=== PATIENT | female | born 1960 | race Caucasian/White ===

== ENCOUNTER 2020-03-02 15:20 | Outpatient (CLI) | payer OTHER, BC, SELFPAY ==
--- NOTE | 2020-03-02 15:31 | MM_ITS ---
WS: [id number] BILATERAL SCREENING DIGITAL MAMMOGRAM WITH CAD HISTORY: SCREEN COMPARISON: 07/27/2016 and 11/02/2015 Bilateral CC and MLO views submitted. Computer aided detection analyzed. Breast composition: There are scattered areas of fibroglandular density. No suspicious masses, microc alcifications or architectural distortion. MM/[id number] IMPRESSION: BI-RADS: 1-Negative FOLLOW UP: 1 Year Follow-up
== END 2020-03-02 15:21 | disposition home or self-care (01) ==
PROVIDERS: PCP Internal Medicine; Visit Provider Nurse Practitioner Family
DX: Z12.31 Encounter for screening mammogram for malignant neoplasm of breast (principal)
CPT/HCPCS: 77067

== ENCOUNTER 2020-05-05 12:46 | Emergency (ER) | payer OTHER, BC, SELFPAY ==
[2020-05-05] VITALS (7 sets, daily range): BP systolic 147–192; BP diastolic 80–108; PULSE 105–124; RESP 20–22; TEMP 37.6–37.7; O2SAT 88–98; BMI 38.4
--- NOTE | 2020-05-05 13:08 | XRR_ITS ---
PROCEDURE INFORMATION: Exam: XR Chest, 1 View Exam date and time: 05/05/2020 1:09 PM Age: 59 years old Clinical indication: Shortness of breath; Additional info: Dyspnea TECHNIQUE: Imaging protocol: XR of the chest Views: 1 view. COMPARISON: CT Chest/Abdomen/Pelvis [facility] 06/09/2016 1:51 PM FINDINGS: Lungs: There is mild opacification in the mid and inferior left lung. The right lung is clear. Pleural space: Unremarkable. No pleural effusion. No pneumothorax. Heart/Mediastinum: Unremarkable. No cardiomegaly. Bones/joints: Unremarkable. XR/XR chest 1V portable [id number] IMPRESSION: There is mild opacification in the mid and inferior left lung suggestive of mild pneumonia.Clinical correlation is advised.
--- NOTE | 2020-05-05 13:32 | W.ED.SOB ---
HPI - SOB/Dyspnea General: Chief Complaint: Shortness of Breath/Dyspnea Stated Complaint: COVID +/fever/stats dropping Time Seen by Provider: 05/05/20 13:07 History of Present Illness: HPI Narrative: 59-year-old female presents emergency room complaining of fever increasing shortness of breath. She diagnosed with Covid on April 27. She been symptomatic for a couple of days prior. She was treated with Cipro Zithromax and nebulizers on follow-up today at her primary care doctor's office is reported that her sats were in the low 90s on room air. She was referred to the emergency room on arrival here her sats at rest on room air initially were in the 96 to 98% after she had been here for a time her sats settled into 92 to 93% on room air while at rest. She is mildly tachycardic. She has a nonproductive cough and is also been running a bit of a fever she denies any diarrhea at this point. MD elicited complaint: shortness of breath and cough Onset (ago): hour(s) Context: recent illness (COVID-19 infection) Timing: constant Severity: moderate Exacerbating factors: exertion Relieving factors: rest and bronchodilators Associated symptoms: Reports chest congestion, cough and fever(s); Deny abdominal pain, chest pain, diaphoresis, dizziness, extremity pain, hemoptysis, lightheadedness, myalgias, nausea, orthopnea, palpitations, paresthesias, polydipsia, polyuria, rash, sense of impending doom, syncope or vomiting Treatment prior to arrival: bronchodilator Review of Systems Const: Reports: fever(s); Denies: diaphoresis ENMT: Reports: nasal discharge and nasal congestion; Denies: throat pain or ear or mastoid pain Card: Denies: chest pain, palpitations, lightheadedness, syncope or orthopnea Resp: Reports: non-productive cough, wheezing and chest congestion; Denies: hemoptysis GI: Denies: abdominal pain, nausea or vomiting : Denies: flank pain, difficulty voiding, dysuria, urinary frequency or urinary urgency Musc: Denies: extremity pain Skin/Breast: Denies: rash or pruritus Neuro: Denies: dizziness Endo: Denies: polyuria or polydipsia Physical Exam Const: COMMON NORMALS: no acute distress GENERAL APPEARANCE: cooperative and comfortable ORIENTATION/CONSCIOUSNESS: Yes awake, Yes oriented to person, Yes oriented to place and Yes oriented to time HENMT: COMMON NORMALS: normocephalic, atraumatic and hearing grossly normal bilaterally HEAD & SCALP: normocephalic and atraumatic Eye: COMMON NORMALS: Equal, round and reactive pupils present, EOMs intact bilaterally, conjunctivae normal and no scleral icterus CONJUNCTIVA: Yes conjunctivae normal PUPIL: Yes Equal, round and reactive pupils present Neck/C-Spine: COMMON NORMALS: no JVD Resp: AUSCULTATION: rhonchi and wheezes Cardio: COMMON NORMALS: no JVD, regular rate, regular rhythm and No murmurs present (Cardio) RATE: regular rate RHYTHM: regular rhythm GI: COMMON NORMALS: Soft to palpation and No hepatosplenomegaly present AUSCULTATION: Yes normoactive bowel sounds PALPATION: Yes Soft to palpation, No Tenderness to palpation present (GI), No Guarding due to palpation present (GI) and Yes No hepatosplenomegaly present Extremity: COMMON NORMALS: normal to inspection, capillary refill normal, no clubbing, cyanosis or edema, no calf tenderness and no pedal edema Neuro: SENSORIUM/ORIENTATION: Yes oriented to person, Yes oriented to place and Yes oriented to time Skin: COMMON NORMALS: no rashes or lesions noted GENERAL SKIN EXAM: no rashes or lesions noted Course Vital Signs: Vital signs: Vital Signs Temperature 99.9 F H 05/05/20 13:51 Pulse Rate 114 H 05/05/20 13:51 Respiratory Rate 22 H 05/05/20 13:51 Blood Pressure 156/94 05/05/20 13:51 Pulse Oximetry 94 05/05/20 15:09 MDM - SOB/Dyspnea MDM Narrative: Medical decision making narrative: Reviewed findings with the patient. Her white count is slightly elevated you may have to do the steroids she is breathing good her chest x-ray does not show anything that looks significantly acute at this point. We will go ahead and discharge her home I am going to have her go home with oxygen and give her an O2 sat monitor to watch the oxygen levels. At this point I do not think she requires hospitalization if she has worsening or change symptoms she is to return to the emergency room immediately. Otherwise follow-up with her primary care doctor in the next 4 to 5 days. Lab Data: Labs: Lab Results 05/05/20 05/05/20 05/05/20 Range/Units 13:17 13:35 13:40 WBC 20.9 H (4.0-10.0) 10^3/ uL RBC 4.78 (4.1-5.3) 10^6/u L Hgb 14.1 (11.5-15.3) g/dL Hct 44.7 (37.0-47.0) % MCV 93.5 (81-99) fL MCH 29.5 (28.0-34.0) pg MCHC 31.5 (30.0-36.0) g/dL RDW 15.9 H (12.1-15.1) % Plt Count 205 (130-400) 10^3/c mm MPV 11.6 H (7.4-10.4) fL Neut % (Auto) 45.1 % Lymph % (Auto) 50.4 % Calloway % (Auto) 3.6 % Eos % (Auto) 0.0 % Baso % (Auto) 0.2 % Neut # (Auto) 9.42 H (1.8-7.7) 10^3/u L Lymph # (Auto) 10.5 H (0.8-4.8) 10^3/u L Calloway # (Auto) 0.8 (0.2-0.9) 10^3/u L Eos # (Auto) 0.0 (0.0-0.8) 10^3/u L Baso # (Auto) 0.0 (0.0-0.1) 10^3/u L Nucleated RBC % (a uto) 0 % Nucleated RBCs # 0.0 /100WBC Fibrinogen (174-498) mg/dL D-Dimer (0-0.59) ug/mIFE U Specimen Type Arterial Sample Site Brachial, right ABG pH 7.43 (7.35-7.45) ABG pCO2 37.6 (35-45) mmHg ABG pO2 62.1 L (80.0-100.0) mmH g ABG HCO3 25.2 (22-26) mmol/L ABG Base Excess 1.1 (-2.0-2.0) mmol/ L Stefano Test N/a Hematocrit 44.6 (37-47) % O2 Delivery Device Room air FiO2 21.0 % Bacteriologist Dairy ID Amh Sodium (136-145) mmol/L Potassium (3.5-5.1) mmol/L Chloride (98-107) mmol/L Carbon Dioxide (22-29) mmol/L Anion Gap (5-19) BUN (6-20) mg/dL Creatinine (0.5-0.9) mg/dL GFR Calculation (90-130) mL/min Glucose (65-115) mg/dL Calculated Osmolal ity (285-295) mOsm/k g Lactic Acid (0.5-2.2) mmol/L Calcium (8.5-10.5) mg/dL Magnesium (1.7-2.3) mg/dL Ferritin (15-150) ng/mL Total Bilirubin (0.15-1.2) mg/dL AST (0-32) U/L ALT (0-33) U/L Alkaline Phosphata se (35-105) IU/L Lactate Dehydrogen ase (135-214) U/L C-Reactive Protein (0.0-4.9) mg/L Total Protein (6.6-8.7) g/dL Albumin (3.5-5.2) g/dL Globulin (1.3-4.6) g/dL Procalcitonin (0-0.5) ng/mL Influenza Type A A g Negative (Negative) Influenza Type B A g Negative (Negative) 05/05/20 05/05/20 05/05/20 Range/Units 13:40 13:40 13:40 WBC (4.0-10.0) 10^3/ uL RBC (4.1-5.3) 10^6/u L Hgb (11.5-15.3) g/dL Hct (37.0-47.0) % MCV (81-99) fL MCH (28.0-34.0) pg MCHC (30.0-36.0) g/dL RDW (12.1-15.1) % Plt Count (130-400) 10^3/c mm MPV (7.4-10.4) fL Neut % (Auto) % Lymph % (Auto) % Calloway % (Auto) % Eos % (Auto) % Baso % (Auto) % Neut # (Auto) (1.8-7.7) 10^3/u L Lymph # (Auto) (0.8-4.8) 10^3/u L Calloway # (Auto) (0.2-0.9) 10^3/u L Eos # (Auto) (0.0-0.8) 10^3/u L Baso # (Auto) (0.0-0.1) 10^3/u L Nucleated RBC % (a uto) % Nucleated RBCs # /100WBC Fibrinogen 539 H (174-498) mg/dL D-Dimer 0.57 (0-0.59) ug/mIFE U Specimen Type Sample Site ABG pH (7.35-7.45) ABG pCO2 (35-45) mmHg ABG pO2 (80.0-100.0) mmH g ABG HCO3 (22-26) mmol/L ABG Base Excess (-2.0-2.0) mmol/ L Stefano Test Hematocrit (37-47) % O2 Delivery Device FiO2 % Bacteriologist Dairy ID Sodium 138 (136-145) mmol/L Potassium 3.7 (3.5-5.1) mmol/L Chloride 99 (98-107) mmol/L Carbon Dioxide 25 (22-29) mmol/L Anion Gap 17.7 (5-19) BUN 15 (6-20) mg/dL Creatinine 0.6 (0.5-0.9) mg/dL GFR Calculation 102.3 (90-130) mL/min Glucose 98 (65-115) mg/dL Calculated Osmolal ity 287 (285-295) mOsm/k g Lactic Acid 1.3 (0.5-2.2) mmol/L Calcium 9.0 (8.5-10.5) mg/dL Magnesium 2.1 (1.7-2.3) mg/dL Ferritin 190 H (15-150) ng/mL Total Bilirubin 0.4 (0.15-1.2) mg/dL AST 39 H (0-32) U/L ALT 68 H (0-33) U/L Alkaline Phosphata se 90 (35-105) IU/L Lactate Dehydrogen ase 249 H (135-214) U/L C-Reactive Protein 36.0 H (0.0-4.9) mg/L Total Protein 7.1 (6.6-8.7) g/dL Albumin 4.2 (3.5-5.2) g/dL Globulin 2.9 (1.3-4.6) g/dL Procalcitonin 0.07 (0-0.5) ng/mL Influenza Type A A g (Negative) Influenza Type B A g (Negative) Discharge Plan Discharge Patient Disposition: Home Clinical Impression: COVID-19 virus infection Condition: Stable Prescriptions: New dexamethasone 6 mg tablet 6 mg PO DAILY Qty: 7 RF: 0 No Action azithromycin 250 mg tablet 250 mg PO DIRECTED RF: 0 prednisone 20 mg tablet 20 mg PO BID RF: 0 Discharge Orders: Discharge Order (Routine); Ordered 05/05/20 Ordered By: Jimmie Brito Other Ambulatory Orders: DME: Oxygen (Order) Location: None Selected Ordered By: Jimmie Brito DME: Oxygen (Order) Location: None Selected Ordered By: Jimmie Brito Referrals: Angel Chatterjee DO [Primary Care Provider] - Discharge Diet: Usual diet Discharge Activity: Limit activity as instructed Activity Restrictions/Additional Instructions: Monitor your home O2 sat with a finger saturation given to you today. Tylenol and ibuprofen as needed for fever. Dexamethasone daily for 7 days. Follow-up with your primary care doctor in 2 to 3 days. Coding Level of Care Code ED Fly Finisher for Barbi Fwcliff Exam Comprehensive
[2020-05-05 13:47] LABS: ABG PCO2 37.6 mmHg (35-45); ABG PH Result 7.43 (7.35-7.45); Arterial Blood Gas Hematocrit 44.6 % (37-47); Base Excess ABG 1.1 mmol/L (-2.0-2.0); Blood Gas Sample Site Brachial, right; Blood Gas Sample Type Arterial; HCO3 ABG 25.2 mmol/L (22-26); PO2 ABG 62.1 mmHg (80.0-100.0)
[2020-05-05 13:49] LABS: Blood Gas Operator Identificat AMH; Oxygen Device ROOM AIR
[2020-05-05 13:51] LABS: Basophils % 0.2 %; Hematocrit 44.7 % (37.0-47.0); Hemoglobin 14.1 g/dL (11.5-15.3); Lymphocytes # 10.5 10^3/uL (0.8-4.8); Lymphocytes % 50.4 %; Mean Corpuscular HGB Conc 31.5 g/dL (30.0-36.0); Mean Corpuscular Hemoglobin 29.5 pg (28.0-34.0); Mean Corpuscular Volume 93.5 fL (81-99); Mean Platelet Volume 11.6 fL (7.4-10.4); Monocytes # 0.8 10^3/uL (0.2-0.9); Monocytes % 3.6 %; Neutrophils # 9.42 10^3/uL (1.8-7.7); Neutrophils % 45.1 %; Nucleated Red Blood Cells % 0 %; Platelet Count 205 10^3/cmm (130-400); Red Blood Count 4.78 10^6/uL (4.1-5.3); Red Cell Distribution Width 15.9 % (12.1-15.1); White Blood Count 20.9 10^3/uL (4.0-10.0)
[2020-05-05 14:16] LABS: Influenza A by IFA Negative (Negative); Influenza B by IFA Negative (Negative)
[2020-05-05 14:17] LABS: Lactic Sepsis W/Reflex 1.3 mmol/L (0.5-2.2)
[2020-05-05 14:26] LABS: Procalcitonin 0.07 ng/mL (0-0.5)
[2020-05-05 14:32] LABS: D Dimer 0.57 ug/mIFEU (0-0.59)
[2020-05-05 14:38] LABS: Alanine Aminotransferase 68 U/L (0-33); Albumin Level 4.2 g/dL (3.5-5.2); Alkaline Phosphatase 90 IU/L (35-105); Anion Gap 17.7 (5-19); Aspartate Amino Transferase 39 U/L (0-32); Blood Urea Nitrogen 15 mg/dL (6-20); Carbon Dioxide 25 mmol/L (22-29); Chloride 99 mmol/L (98-107); Ferritin 190 ng/mL (15-150); Globulin 2.9 g/dL (1.3-4.6); Glomerular Filtration Rate 102.3 mL/min (90-130); Glucose 98 mg/dL (65-115); Lactate Dehydrogenase 249 U/L (135-214); Magnesium 2.1 mg/dL (1.7-2.3); Osmolality Calculated 287 mOsm/kg (285-295); Potassium 3.7 mmol/L (3.5-5.1); Sodium 138 mmol/L (136-145); Total Bilirubin 0.4 mg/dL (0.15-1.2); Total Protein 7.1 g/dL (6.6-8.7)
[2020-05-05 14:40] LABS: Slide Review Slide Review Perform
[2020-05-05 15:00] LABS: Fibrinogen 539 mg/dL (174-498)
== END 2020-05-05 16:42 | disposition home or self-care (01) ==
PROVIDERS: Emergency Provider Family Medicine; PCP Internal Medicine
DX: U07.1 COVID-19 (principal)
CPT/HCPCS: 12345; 36600; 71045; 80053; 82728; 82803; 83605; 83615; 83735; 84145; 85025; 85378; 85384; 86140; 87070; 87205; 87804; 99283; 99284

== ENCOUNTER → 2021-06-17 08:16 | Outpatient (BNVA) | payer OTHER, BC, SELFPAY | PROVIDERS: PCP Family Medicine; Visit Provider Family Medicine | DX: Z13.6 Encounter for screening for cardiovascular disorders (principal); Z80.41 Family history of malignant neoplasm of ovary; R00.2 Palpitations | CPT/HCPCS: 80053; 80061; 84443; 85025; 86304 ==

== ENCOUNTER 2021-07-26 07:25 | Outpatient (CLI) | payer OTHER, BC, SELFPAY ==
--- NOTE | 2021-07-26 07:30 | MM_ITS ---
WS: [id number] BILATERAL SCREENING DIGITAL MAMMOGRAM WITH CAD HISTORY: screening mammogram COMPARISON: 03/02/2020 and 06/26/2017 Bilateral CC and MLO views submitted. Computer aided detection analyzed. Breast composition: There are scattered areas of fibroglandular density. No suspicious masses, microc alcifications or architectural distortion. Increased density within lymph nodes in each axilla. These were also present on studies. MM/[id number] IMPRESSION: BI-RADS: 2-Benign FOLLOW UP: 1 Year Follow-up
== END 2021-07-26 07:26 | disposition home or self-care (01) ==
LOC: RADSHAW 07:30
PROVIDERS: PCP Family Medicine; Visit Provider Family Medicine
DX: Z12.31 Encounter for screening mammogram for malignant neoplasm of breast (principal)
CPT/HCPCS: 77067

== ENCOUNTER 2022-03-21 14:59 | Outpatient (CLI) | payer OTHER, BC, SELFPAY ==
--- NOTE | 2022-03-21 16:00 | USCV_ITS ---
Clara Ingram Age: 61 Gender: F : 1960 Exam Date: 03/21/2022 15:49 Ordering Phys: Magui Venegas DO Technologist: Mary Castellanos Exam Location: [facility] Indication: lower extremity edema BP: 120 / 82 HR: 80 Rhythm: Sinus Technical Quality: Fair MEASUREMENTS (Male / Female) Normal Values 2D ECHO LV Diastolic Diameter PLAX 4.4 cm 4.2 - 5.9 / 3.9 - 5.3 cm LV Systolic Diameter PLAX 3.4 cm IVS Diastolic Thickness 1.3 cm 0.6 - 1.0 / 0.6 - 0.9 cm IVS Systolic Thickness 1.4 cm LVPW Diastolic Thickness 0.9 cm 0.6 - 1.0 / 0.6 - 0.9 cm LVPW Systolic Thickness 1.0 cm LVOT Diameter 2.0 cm LV Ejection Fraction 2D Teich 45.9 % LA Diameter 2.1 cm LA Width 3.0 cm LA Height 5.4 cm RA Width 3.4 cm RA Height 4.2 cm Aorta at Sinotubular Diameter 2.3 cm M-MODE MV E Point Septal Separation 1.1 cm DOPPLER AV Peak Velocity 191.0 cm/s LVOT Peak Velocity 145.0 cm/s AV Area Cont Eq vti 2.2 cm squared AV Area Cont Eq pk 2.4 cm squared MV Peak Velocity 137.0 cm/s MV Area PHT 3.5 cm squared Mitral E to A Ratio 0.9 MV E' Velocity 64.0 cm/s Mitral E to MV E' Ratio 11.2 Mitral E to LV E' Lateral Ratio 10.8 Mitral E to LV E' Septal Ratio 11.7 TR Peak Velocity 243.0 cm/s TR Peak Gradient 23.6 mmHg Right Atrial Pressure 3.0 mmHg Pulmonary Artery Systolic Pressu 26.6 mmHg PV Peak Velocity 103.0 cm/s RV Acceleration Time 0.1 s RV Ejection Time 0.3 s RV AcT/ET 0.3 FINDINGS Left Ventricle Normal left ventricular size and systolic function, EF 60% (visual) . No regional wall motion abnormalities. Grade I/IV diastolic dysfunction (abnormal relaxation filling pattern), normal to mildly elevated filling pressures. Right Ventricle The right ventricle is normal in size and function. Right Atrium The right atrium is normal in size. Left Atrium The left atrium is normal in size. Mitral Valve Moderate mitral annular calcification. Aortic Valve No gross abnormalities noted Tricuspid Valve Trace tricuspid valve regurgitation. Estimated pulmonary artery peak systolic pressure 27 mmHg Pulmonic Valve Pulmonic valve not well visualized. Pericardium Normal pericardium without effusion. Aorta Normal aortic annulus size. IVC Inferior vena cava not visualized. CONCLUSIONS Normal left ventricular size and systolic function, EF 60% (visual) . No regional wall motion abnormalities. Grade I/IV diastolic dysfunction (abnormal relaxation filling pattern), normal to mildly elevated filling pressures. Moderate mitral annular calcification. Trace tricuspid valve regurgitation. Estimated pulmonary artery peak systolic pressure 27 mmHg. There is no pericardial effusion. There are no intracardiac masses. No similar previous studies are available for comparison Dr Josh Bell MD [facility] (Electronically Signed) Final Date: 21 March 2022 21:06 S
== END 2022-03-21 15:00 | disposition home or self-care (01) ==
LOC: RAD 15:00
PROVIDERS: PCP Family Medicine; Visit Provider Family Medicine
DX: R60.0 Localized edema (principal); I08.1 Rheumatic disorders of both mitral and tricuspid valves
CPT/HCPCS: 93306

== ENCOUNTER 2022-04-28 12:45 | Outpatient (CLI) | payer OTHER, BC, SELFPAY ==
--- NOTE | 2022-04-28 13:00 | US_ITS ---
WS: [id number] RIGHT UPPER QUADRANT ULTRASOUND HISTORY: ruq pain and fever COMPARISON: None available. Liver: 16.9 cm in length. Top normal size liver. Coarsened echotexture throughout the liver. No mass identified. No bile duct dilatation. Portal Vein: Normal hepatopetal flow with monophasic waveform. Gallbladder: Normally distended gallbladder with numerous shadowing stones. No pericholecystic fluid or gallbladder wall thickening. Several of these stones appear to be trapped within the neck of the g allbladder. There are several stones that may be external to the gallbladder lumen. Possibility of fi stulous tract should be considered. The largest stone measures up to 1.6 cm. CBD: 0.6 cm Pancreas: Normal size and echogenicity. Right kidney: 12.8 cm in length. Normal size and echogenicity. No hydronephrosis or mass. Aorta and IVC: Unremarkable abdominal aorta and IVC. No ascites. US/US liver [id number] IMPRESSION: 1. Cholelithiasis. Numerous large stones are present in the gallbladder. 2. There is a calcification which I cannot place within the lumen of the gallb ladder. This may be extending into the gallbladder wall and developing a fistul ous tract to the duodenum. Alternatively, stones within a redundant gallbladder . Highly recommend surgical consultation. 3. The common bile duct is not dilated. Notified Magui Venegas DO at 04/28/2022 1:49 PM.
[2022-04-28 13:21] LABS: Basophils # 0.1 10^3/uL (0.0-0.1); Basophils % 0.3 %; Eosinophils % 0.1 %; Hematocrit 43.9 % (37.0-47.0); Hemoglobin 14.1 g/dL (11.5-15.3); Lymphocytes # 17.2 10^3/uL (0.8-4.8); Lymphocytes % 62.1 %; Mean Corpuscular HGB Conc 32.1 g/dL (30.0-36.0); Mean Corpuscular Hemoglobin 30.1 pg (28.0-34.0); Mean Corpuscular Volume 93.8 fl (81-99); Monocytes # 0.9 10^3/uL (0.2-0.9); Monocytes % 3.2 %; Neutrophils # 9.37 10^3/uL (1.8-7.7); Neutrophils % 33.9 %; Nucleated Red Blood Cells % 0 %; Platelet Count 219 10^3/cmm (130-400); Red Blood Count 4.68 10^6/uL (4.1-5.3); Red Cell Distribution Width 15.7 % (12.1-15.1); White Blood Count 27.7 10^3/uL (4.0-10.0)
[2022-04-28 13:49] LABS: Alanine Aminotransferase 21 U/L (0-33); Albumin Level 4.1 g/dL (3.5-5.2); Alkaline Phosphatase 100 U/L (35-105); Anion Gap 13.7 (5-19); Aspartate Amino Transferase 11 U/L (0-32); Blood Urea Nitrogen 14 mg/dL (8-23); Calcium 9.7 mg/dL (8.5-10.5); Carbon Dioxide 28 mmol/L (22-29); Chloride 95 mmol/L (98-107); Globulin 3.2 g/dL (1.3-4.6); Glomerular Filtration Rate 85.1 mL/min (90-130); Glucose 99 mg/dL (65-115); Osmolality Calculated 277 mOsm/kg (285-295); Potassium 3.7 mmol/L (3.5-5.1); Sodium 133 mmol/L (136-145); Total Bilirubin 0.4 mg/dL (0.15-1.2); Total Protein 7.3 g/dL (6.6-8.7)
== END 2022-04-28 12:46 | disposition home or self-care (01) ==
LOC: RAD 12:46
PROVIDERS: PCP Family Medicine; Visit Provider Family Medicine
DX: R10.11 Right upper quadrant pain (principal); R50.9 Fever, unspecified; K80.20 Calculus of gallbladder without cholecystitis without obstruction
CPT/HCPCS: 76705; 80053; 85025

== ENCOUNTER 2022-06-26 08:43 | Day surgery (SDC) | payer OTHER, BC, SELFPAY ==
[2022-06-26] VITALS (10 sets, daily range): BP systolic 126–178; BP diastolic 62–110; PULSE 67–100; RESP 16–20; TEMP 36.7–37.2; O2SAT 94–100
[2022-06-26] MEDS: sodium chloride 0.9% 1,000 ML 30 ML IV (09:13)
[2022-06-26 09:16] LABS: Basophils # 0.1 10^3/uL (0.0-0.1); Basophils % 0.2 %; Hematocrit 44.8 % (37.0-47.0); Lymphocytes # 22.2 10^3/uL (0.8-4.8); Lymphocytes % 70.5 %; Mean Corpuscular HGB Conc 31.3 g/dL (30.0-36.0); Mean Corpuscular Hemoglobin 29.4 pg (28.0-34.0); Mean Corpuscular Volume 93.9 fl (81-99); Mean Platelet Volume 12.2 fL (7.4-10.4); Monocytes # 0.9 10^3/uL (0.2-0.9); Monocytes % 2.9 %; Neutrophils # 8.18 10^3/uL (1.8-7.7); Neutrophils % 26.1 %; Nucleated Red Blood Cells % 0.1 %; Platelet Count 235 10^3/cmm (130-400); Red Blood Count 4.77 10^6/uL (4.1-5.3); Red Cell Distribution Width 16.3 % (12.1-15.1)
[2022-06-26] MEDS: vancomycin 1,500 MG/300 ML PIGGYBACK 200 MG IV (09:16)
--- NOTE | 2022-06-26 09:32 | ANES.PREANE2 ---
Pre-Anesthetic Assessment Height/Weight: Height 1.63 m Weight 104.326 kg Temp Pulse Resp BP Pulse Ox O2 Del Method 98.2 F 100 17 160/89 96 06/26/22 09:01 06/26/22 09:01 06/26/22 09:01 06/26/22 09:06 06/26/22 09:01 06/26/22 09:01 Preop Diagnosis: Cholecystitis Operation Date: 06/26/22 10:20 Proposed Procedures p Laparoscopic Cholecystectomy 62895,K81.0(Not Applicable) - Joe Bhandari, Familial anesthetic complications: None Was Beta Govind taken within 24 hours: Yes Was Clonidine taken within 24 hours: N/A Last intake: Intake Last Liquid Date 06/25/22 Last Liquid Time 21:30 Last Solid Date 06/25/22 Last Solid Time 21:00 Social No alcohol and No tobacco former smoker Exam alert, oriented x 3, clear to auscultation bilaterally and regular rate & rhythm Airway Mallampati: Class II Dentition: other (missing teeth) Pulmonary chronic sinusits w/ cough and drainage - sometimes requires albuterol CV/HEM Hypertension Musc/skel hx CLL Neuropsych Anxiety Anesthetic Plan ASA status: 2 Anesthesia: General Risk of > 500 ml blood loss (7ml/kg in children): No Medications/Allergies Home Medications Medication Instructions Recorded Confirmed Last Taken Type T1-arth-tyvjszf-yft-MO-K1-zinc-copper 1 tab PO DAILY 05/10/21 06/26/22 06/25/22 10:00 History 700 mg-500 mcg-8 mg-12 mg tablet cholecalciferol (vitamin D3) 25 25 mcg PO DAILY 05/10/21 06/26/22 06/25/22 10:00 History mcg (1,000 unit) capsule magnesium carb,citrate,oxide 400 mg PO DAILY 05/10/21 06/26/22 06/25/22 10:00 History (Magnesium Complex) multivitamin 1 tab PO DAILY 05/10/21 06/26/22 06/25/22 10:00 History vitamin B complex (B 1 tab PO DAILY 05/10/21 06/26/22 06/25/22 10:00 History Complex-Vitamin B12 tablet) albuterol sulfate 2.5 mg/3 mL 2.5 mg (3 mL) inhalation Q6H PRN 10/25/21 06/25/22 Unknown Rx (0.083 %) solution for nebulization shortness of breath or wheezing #180 mL metoprolol tartrate 25 mg tablet 25 mg PO BID 90 days #180 tabs 02/28/22 06/26/22 06/26/22 08:00 Rx cetirizine 10 mg tablet (Zyrtec) 10 mg PO DAILY 04/24/22 06/26/22 06/25/22 21:00 History fluticasone propionate 50 1 spray intranasal BID 04/24/22 06/26/22 06/25/22 22:00 History mcg/actuation nasal spray,suspension (Flonase Allergy Relief) hydrochlorothiazide 25 mg tablet 37.5 mg PO DAILY #135 tabs 04/24/22 06/26/22 06/25/22 10:00 Rx travoprost 0.004 % eye drops 1 drp ophthalmic (eye) .HS 04/24/22 06/26/22 06/25/22 22:00 History (Travatan Z) ondansetron 8 mg disintegrating 8 mg PO Q8H PRN nausea and 04/28/22 06/25/22 06/11/22 Rx tablet vomiting #20 tabs Allergies Allergy/AdvReac Type Severity Reaction Status Date / Time neomycin Allergy Mild ALGY-Rash Verified 06/26/22 08:54 Current Medications Generic Name Dose Route Start Last Admin Trade Name Freq PRN Reason Stop Dose Admin Sodium Chloride 1,000 mls @ 30 mls/hr 06/26/22 09:00 06/26/22 09:13 Sodium Chloride 0.9% IV 06/27/22 08:59 30 mls/hr .Q24H VENICE Administration Vancomycin/PEG/NADA/Lysine/Water 1,500 mg in 300 mls @ 200 mls/hr 06/26/22 08:52 06/26/22 09:16 Vancocin IV 06/26/22 10:21 200 mls/hr COMPRESSOR MECHANIC ONE Administration Protocol [facility] Anesthesia Medical History Anxiety CLL (chronic lymphocytic leukemia) Diag. in 2010 - Followed by [facility]. Depression Glaucoma History of COVID-16 Apr 2020 Surgical History History of back surgery L4-L5 History of bladder surgery History of D&C History of tonsillectomy and adenoidectomy History of tubal ligation Hx of colonoscopy 2013 Family History Grandfather Stroke Hypertension Father Stroke Hypertension Mother Hypertension Grandmother Hypertension Sister Hypertension Brother Hypertension Social History Smoking and tobacco status: former smoker Alcohol intake: never Data Anesthesia 06/26/22 09:05 06/26/22 09:05 BMP 06/26/22 09:05 Sodium Cancelled Potassium Cancelled Chloride Cancelled Carbon Dioxide Cancelled BUN Cancelled Creatinine Cancelled Glucose Cancelled Calcium Cancelled Cardiac Studies: Echocardiogram 03/21/22 Cardiac Event Monitor 06/12/21
--- NOTE | 2022-06-26 09:39 | PM.HP ---
Providers/Chief Complaint Primary Care Provider: Magui Venegas DO Chief Complaint: K81.0 History of Present Illness Clara Ingram is a 61 year old female here for laparoscopic cholecystectomy. Medications/Allergies Home Medications Medication Instructions Recorded Confirmed Last Taken Type M1-ypor-oiduxgy-szv-OU-E4-zinc-copper 1 tab PO DAILY 05/10/21 06/26/22 06/25/22 10:00 History 700 mg-500 mcg-8 mg-12 mg tablet cholecalciferol (vitamin D3) 25 25 mcg PO DAILY 05/10/21 06/26/22 06/25/22 10:00 History mcg (1,000 unit) capsule magnesium carb,citrate,oxide 400 mg PO DAILY 05/10/21 06/26/22 06/25/22 10:00 History (Magnesium Complex) multivitamin 1 tab PO DAILY 05/10/21 06/26/22 06/25/22 10:00 History vitamin B complex (B 1 tab PO DAILY 05/10/21 06/26/22 06/25/22 10:00 History Complex-Vitamin B12 tablet) albuterol sulfate 2.5 mg/3 mL 2.5 mg (3 mL) inhalation Q6H PRN 10/25/21 06/25/22 Unknown Rx (0.083 %) solution for nebulization shortness of breath or wheezing #180 mL metoprolol tartrate 25 mg tablet 25 mg PO BID 90 days #180 tabs 02/28/22 06/26/22 06/26/22 08:00 Rx cetirizine 10 mg tablet (Zyrtec) 10 mg PO DAILY 04/24/22 06/26/22 06/25/22 21:00 History fluticasone propionate 50 1 spray intranasal BID 04/24/22 06/26/22 06/25/22 22:00 History mcg/actuation nasal spray,suspension (Flonase Allergy Relief) hydrochlorothiazide 25 mg tablet 37.5 mg PO DAILY #135 tabs 04/24/22 06/26/22 06/25/22 10:00 Rx travoprost 0.004 % eye drops 1 drp ophthalmic (eye) .HS 04/24/22 06/26/22 06/25/22 22:00 History (Travatan Z) ondansetron 8 mg disintegrating 8 mg PO Q8H PRN nausea and 1031/22 12/28/22 12/14/22 Rx tablet vomiting #20 tabs Allergies Allergy/AdvReac Type Severity Reaction Status Date / Time neomycin Allergy Mild ALGY-Rash Verified 06/26/22 08:54 PFSH Acute PFSH: Medical History Anxiety CLL (chronic lymphocytic leukemia) Diag. in 2010 - Followed by [facility]. Depression Glaucoma History of COVID-16 Apr 2020 Surgical History History of back surgery L4-L5 History of bladder surgery History of D&C History of tonsillectomy and adenoidectomy History of tubal ligation Hx of colonoscopy 2013 Family History Grandfather Stroke Hypertension Father Stroke Hypertension Mother Hypertension Grandmother Hypertension Sister Hypertension Brother Hypertension Social History Smoking and tobacco status: former smoker Alcohol intake: never Vitals/I&O/Wt Last Vital Signs Temp 98.2 F 06/26/22 09:01 Pulse 100 06/26/22 09:01 Resp 17 06/26/22 09:01 BP 160/89 06/26/22 09:06 Pulse Ox 96 06/26/22 09:01 O2 Del Method 06/26/22 09:01 Weight last 48 hrs Weight 230 lb Data 06/26/22 09:05 06/26/22 09:05 A&P Assessment and plan (1) Acute cholecystitis without calculus: Plan Laparoscopic cholecystectomy The risks and benefits of the procedure, including but not limited to, bleeding, infection, scar, numbness, pain, damage to surrounding structures, damage to common bile duct requiring additional surgery, conversion to an open procedure, were explained to the patient. He is understanding of the risks and wishes to proceed. Attestations Medical Necessity Statement*: Home Coding Level of Care Code Acute Program Director Scouting for Chg Fwd Diagnoses Acute cholecystitis without calculus K81.0
[2022-06-26 09:57] LABS: Slide Review Slide Review Perform; White Blood Count 31.5 10^3/uL (4.0-10.0)
--- NOTE | 2022-06-26 10:01 | SUR.PREOP ---
1000-critical lab report to dr salazar, [facility]
--- NOTE | 2022-06-26 11:00 | P.OP_ITS ---
Operative Report Date of procedure: June 26, 2022 Pre-op diagnosis: Preop Diagnosis Cholecystitis Post-op diagnosis: same Procedure done: Laparoscopic cholecystectomy Specimens removed/disposition: Gallbladder Surgeon: Joe Bhandari DO Anesthesia: General Estimated blood loss (mL): 5 Complications: None apparent Brief History: This is a very pleasant 61-year-old female who was found to have cholecystitis. Laparoscopic cholecystectomy was indicated. The risks and benefits were explained and documented. Procedure: Patient was wheeled into the operative room and placed on the OR table in a supine position. Abdomen was inspected prepped and draped in usual sterile fashion. Time-out was performed and all present were in agreement. A 15 blade scalp was used to make a stab incision in the left upper quadrant and intra- abdominal insufflation was achieved using a Veress needle. After localizing the tissue incisions were made and a 5 millimeter trocar was placed into the umbilicus as well as 2 in the right upper quadrant. A 12 millimeter trocar was placed in the epigastrium. Gallbladder was grasped and elevated. The triangle of Calot was carefully dissected using blunt dissection and electrocautery until the triangle of Calot clearly identified. The cystic duct was clipped proximally and double clipped distally. The duct was then ligated proximally. The cystic artery was doubly clipped and ligated. The gallbladder was then removed from the liver bed using electrocautery. The gallbladder was removed from the abdomen using an Endo-Catch bag through the epigastric incision. The liver bed was inspected and no bleeding was seen. The abdomen was irrigated and suctioned. All ports removed. Skin was washed and dried. Incisions were closed with 3-0 and 4-O Vicryl in a subcuticular interrupted fashion. Skin glue was applied. Patient tolerated the procedure well.
--- NOTE | 2022-06-26 11:24 | PC.NURSE ---
oral suctioning for secretions
--- NOTE | 2022-06-26 16:54 | ANE.PACU2 ---
Inpatient post-anesthesia follow up: Airway intact: Yes Vital signs: Temperature 98.0 F Pulse Rate 71 Respiratory Rate 17 Blood Pressure 135/62 Pulse Oximetry 94 Oxygen Delivery Me thod Room Air Oxygen Flow Rate 8 Fraction of Inspir ed Oxygen Hydration adequate: Yes Nausea and vomiting: No Pain level: 1 Mental status: Baseline
== END 2022-06-26 12:30 | disposition home or self-care (01) ==
PROVIDERS: Anesthesiology; PCP Family Medicine; Visit Provider Surgery
PROC: 0FT44ZZ Resection of Gallbladder, Percutaneous Endoscopic Approach (ICD-10-PCS; CPT 47562; principal; 2022-06-26 10:10)
DX: K80.10 Calculus of gallbladder with chronic cholecystitis without obstruction (principal); F41.9 Anxiety disorder, unspecified; C91.10 Chronic lymphocytic leukemia of B-cell type not having achieved remission; F32.A Depression, unspecified; Z86.16 Personal history of COVID-19; Z87.891 Personal history of nicotine dependence; I10 Essential (primary) hypertension
CPT/HCPCS: 47562; 36415; 85025; 88304; J1100; J2405; J2704; J3370; J3490; J7030

== ENCOUNTER → 2022-08-15 12:18 | Outpatient (BNVA) | payer OTHER, BC, SELFPAY | PROVIDERS: PCP Family Medicine; Visit Provider Family Medicine | DX: Z13.6 Encounter for screening for cardiovascular disorders (principal) | CPT/HCPCS: 80053; 80061 ==

== ENCOUNTER 2022-09-05 15:28 | Outpatient (CLI) | payer OTHER, BC, SELFPAY ==
--- NOTE | 2022-09-05 15:37 | MM_ITS ---
WS: [id number] BILATERAL 3D TOMOSYNTHESIS DIGITAL SCREENING MAMMOGRAPHY WITH CAD CLINICAL INFORMATION: SCREENING HISTORY: Screening mammogram. Fibrous breast tissue COMPARISON: 2021 TECHNIQUE: Bilateral CC and MLO views. FINDINGS: Scattered fibroglandular densities bilaterally. No suspicious focal mass, asymmetry, calcifications, or architectural distortion. No evidence of malignancy. Stable dense axillary lymph nodes. MM/[place] [id number] IMPRESSION: BI-RADS: 2-Benign FOLLOW UP: 1 Year Follow-up Recommend return to annual screening mammography.
== END 2022-09-05 15:29 | disposition home or self-care (01) ==
PROVIDERS: PCP Family Medicine; Visit Provider Family Medicine
DX: Z12.31 Encounter for screening mammogram for malignant neoplasm of breast (principal)
CPT/HCPCS: 77063; 77067

== ENCOUNTER 2022-09-17 12:00 | Outpatient (CLI) | payer OTHER, BC, SELFPAY | END 2022-09-17 12:01 | disposition home or self-care (01) | LOC: SLEEP 09-18 13:52 | PROVIDERS: PCP Family Medicine; Visit Provider Family Medicine | DX: G47.10 Hypersomnia, unspecified (principal) | CPT/HCPCS: G0399 ==

== ENCOUNTER 2022-12-01 12:14 | Oncology outpatient (recurring) (ONCR) | payer OTHER, BC, SELFPAY ==
[2022-12-01 12:23] VITALS: BP 127/77; PULSE 81; RESP 18; TEMP 36.6; O2SAT 98
[2022-12-01 12:47] LABS: Basophils # 0.1 10^3/uL (0.0-0.1); Basophils % 0.2 %; Hematocrit 43.1 % (37.0-47.0); Hemoglobin 13.3 g/dL (11.5-15.3); Lymphocytes # 24.8 10^3/uL (0.8-4.8); Lymphocytes % 65.3 %; Mean Corpuscular HGB Conc 30.9 g/dL (30.0-36.0); Mean Corpuscular Hemoglobin 29.4 pg (28.0-34.0); Mean Corpuscular Volume 95.1 fl (81-99); Mean Platelet Volume 11.6 fL (7.4-10.4); Monocytes # 0.8 10^3/uL (0.2-0.9); Monocytes % 2.2 %; Neutrophils # 12.06 10^3/uL (1.8-7.7); Neutrophils % 31.6 %; Nucleated Red Blood Cells % 0 %; Platelet Count 261 10^3/cmm (130-400); Red Blood Count 4.53 10^6/uL (4.1-5.3); Red Cell Distribution Width 16.6 % (12.1-15.1)
[2022-12-01 13:02] LABS: Alanine Aminotransferase 17 U/L (0-33); Albumin Level 4.3 g/dL (3.5-5.2); Alkaline Phosphatase 86 U/L (35-105); Anion Gap 13.6 (5-19); Aspartate Amino Transferase 9 U/L (0-32); Blood Urea Nitrogen 20 mg/dL (8-23); Calcium 9.4 mg/dL (8.5-10.5); Carbon Dioxide 29 mmol/L (22-29); Chloride 100 mmol/L (98-107); Globulin 2.6 g/dL (1.3-4.6); Glomerular Filtration Rate 101.3 mL/min (90-130); Glucose 94 mg/dL (65-115); Lactate Dehydrogenase 167 U/L (135-214); Osmolality Calculated 290 mOsm/kg (285-295); Potassium 3.6 mmol/L (3.5-5.1); Slide Review Slide Review Perform; Sodium 139 mmol/L (136-145); Total Bilirubin 0.2 mg/dL (0.15-1.2); Total Protein 6.9 g/dL (6.6-8.7)
[2022-12-01 13:03] LABS: White Blood Count 38.1 10^3/uL (4.0-10.0)
== END 2022-12-26 23:59 | disposition home or self-care (01) ==
PROVIDERS: PCP Family Medicine; Visit Provider Internal Medicine Hematology & Oncology
DX: C91.10 Chronic lymphocytic leukemia of B-cell type not having achieved remission (principal)
CPT/HCPCS: 36415; 80053; 83615; 85025

== ENCOUNTER → 2023-02-12 08:20 | Outpatient (BNVA) | payer OTHER, BC, SELFPAY | PROVIDERS: PCP Family Medicine; Visit Provider Family Medicine | DX: E78.5 Hyperlipidemia, unspecified (principal) | CPT/HCPCS: 80061 ==

== ENCOUNTER → 2023-03-12 13:36 | Outpatient (BNVA) | payer OTHER, BC, SELFPAY | PROVIDERS: PCP Family Medicine; Visit Provider Family Medicine | DX: R35.0 Frequency of micturition (principal) | CPT/HCPCS: 81000; 87086 ==

== ENCOUNTER 2023-06-26 07:51 | Oncology outpatient (recurring) (ONCR) | payer OTHER, BC, SELFPAY ==
[2023-06-26 08:10] VITALS: BP 139/84; PULSE 90; RESP 16; TEMP 36.7; O2SAT 96
[2023-06-26 08:23] LABS: Basophils # 0.1 10^3/uL (0.0-0.1); Basophils % 0.3 %; Hematocrit 42.9 % (36-47); Lymphocytes # 19.8 10^3/uL (0.8-4.8); Lymphocytes % 68.3 %; Mean Corpuscular HGB Conc 32.6 g/dL (30-55); Mean Corpuscular Hemoglobin 30.5 pg (27-33); Mean Corpuscular Volume 93.5 fl (85-98); Mean Platelet Volume 11.5 fL (7.4-10.4); Monocytes # 0.9 10^3/uL (0.2-0.9); Monocytes % 3.1 %; Neutrophils % 27.9 %; Nucleated Red Blood Cells % 0 %; Platelet Count 244 10^3/cmm (157-399); Red Blood Count 4.59 10^6/uL (3.85-5.65); Red Cell Distribution Width 15.9 % (12.1-15.1)
[2023-06-26 08:52] LABS: Alanine Aminotransferase 15 U/L (0-33); Alkaline Phosphatase 91 U/L (35-105); Anion Gap 14.1 (5-19); Aspartate Amino Transferase 10 U/L (0-32); Blood Urea Nitrogen 19 mg/dL (8-23); Calcium 9.6 mg/dL (8.5-10.5); Carbon Dioxide 26 mmol/L (22-29); Chloride 101 mmol/L (98-107); Globulin 2.9 g/dL (1.3-4.6); Glomerular Filtration Rate 84.8 mL/min (90-130); Glucose 93 mg/dL (65-115); Lactate Dehydrogenase 166 U/L (135-214); Osmolality Calculated 286 mOsm/kg (285-295); Potassium 4.1 mmol/L (3.5-5.1); Sodium 137 mmol/L (136-145); Total Bilirubin 0.3 mg/dL (0.15-1.2); Total Protein 6.9 g/dL (6.6-8.7)
== END 2023-06-28 23:59 | disposition home or self-care (01) ==
PROVIDERS: PCP Family Medicine; Visit Provider Internal Medicine Hematology & Oncology
DX: C91.10 Chronic lymphocytic leukemia of B-cell type not having achieved remission (principal); Z95.828 Presence of other vascular implants and grafts; Z79.899 Other long term (current) drug therapy
CPT/HCPCS: 36415; 80053; 83615; 85025

== ENCOUNTER → 2023-07-31 09:55 | Outpatient (BNVA) | payer OTHER, BC, SELFPAY | PROVIDERS: PCP Family Medicine; Visit Provider Family Medicine Adult Medicine | DX: R50.9 Fever, unspecified (principal) | CPT/HCPCS: 87400; 87426 ==

== ENCOUNTER 2023-09-11 15:38 | Outpatient (CLI) | payer OTHER, BC, SELFPAY ==
--- NOTE | 2023-09-11 15:49 | XRR_ITS ---
PROCEDURE INFORMATION: Exam: XR Chest Exam date and time: 09/11/2023 3:51 PM Age: 63 years old Clinical indication: Patient HX: Fever; HX of chronic lymphocytic leukemia; Additional info: Fever, history of cll TECHNIQUE: Imaging protocol: Radiologic exam of the chest. Views: 2 views. COMPARISON: CR XR chest 1V portable [id number] 05/05/2020 1:48 PM FINDINGS: Lungs: Unremarkable. No consolidation. Mild chronic elevation of the right hemidiaphragm is unchanged. Pleural spaces: Unremarkable. No pleural effusion. No pneumothorax. Heart/Mediastinum: Unremarkable. No cardiomegaly. Bones/joints: Unremarkable. XR/XR chest 2V* [id number] IMPRESSION: No acute plain radiographic cardiopulmonary abnormality. No confluent consolidation.
== END 2023-09-11 15:39 | disposition home or self-care (01) ==
LOC: RAD 15:42
PROVIDERS: PCP Family Medicine; Visit Provider Family Medicine
DX: R50.9 Fever, unspecified (principal); Z85.6 Personal history of leukemia; Z13.6 Encounter for screening for cardiovascular disorders
CPT/HCPCS: 71046; 80053; 85025

== ENCOUNTER → 2023-12-18 13:43 | Outpatient (BNVA) | payer OTHER, BC, SELFPAY | PROVIDERS: PCP Family Medicine; Visit Provider Family Medicine | DX: R30.0 Dysuria (principal) | CPT/HCPCS: 87086 ==

== ENCOUNTER 2024-01-08 07:56 | Oncology outpatient (recurring) (ONCR) | payer OTHER, BC, SELFPAY ==
[2024-01-08 08:16] LABS: Basophils # 0.1 10^3/uL (0.0-0.1); Basophils % 0.2 %; Hematocrit 42.6 % (36-47); Lymphocytes # 17.5 10^3/uL (0.8-4.8); Lymphocytes % 72.1 %; Mean Corpuscular HGB Conc 31.5 g/dL (30-55); Mean Corpuscular Volume 95.5 fl (85-98); Mean Platelet Volume 11.5 fL (7.4-10.4); Monocytes # 0.6 10^3/uL (0.2-0.9); Monocytes % 2.4 %; Neutrophils # 5.98 10^3/uL (1.8-7.7); Neutrophils % 24.7 %; Nucleated Red Blood Cells % 0 %; Platelet Count 211 10^3/cmm (157-399); Red Blood Count 4.46 10^6/uL (3.85-5.65); Red Cell Distribution Width 15.9 % (12.1-15.1); White Blood Count 24.23 10^3/uL (3.29-11.43)
[2024-01-08 08:33] LABS: Alanine Aminotransferase 19 U/L (0-33); Albumin Level 4.2 g/dL (3.5-5.2); Alkaline Phosphatase 87 U/L (35-105); Anion Gap 15.1 (5-19); Aspartate Amino Transferase 13 U/L (0-32); Blood Urea Nitrogen 21 mg/dL (8-23); Calcium 8.9 mg/dL (8.5-10.5); Carbon Dioxide 25 mmol/L (22-29); Chloride 104 mmol/L (98-107); Globulin 2.8 g/dL (1.3-4.6); Glucose 114 mg/dL (65-115); Osmolality Calculated 294 mOsm/kg (285-295); Potassium 4.1 mmol/L (3.5-5.1); Sodium 140 mmol/L (136-145); Total Bilirubin 0.3 mg/dL (0.15-1.2)
[2024-01-08 08:38] LABS: Lactate Dehydrogenase 181 U/L (135-214)
[2024-01-08 09:35] LABS: Slide Review Slide Review Perform
--- NOTE | 2024-01-08 15:30 | MM_ITS ---
WS: [id number] BILATERAL 3D TOMOSYNTHESIS DIGITAL SCREENING MAMMOGRAPHY WITH CAD CLINICAL INFORMATION: screening HISTORY: Screening mammogram. No current complaints. COMPARISON: 09/05/2022 TECHNIQUE: Bilateral CC and MLO views. FINDINGS: Scattered fibroglandular densities bilaterally. No suspicious focal mass, asymmetry, calcifications, or architectural distortion. No evidence of malignancy. MM/[place] [id number] IMPRESSION: BI-RADS: 1-Negative FOLLOW UP: 1 Year Follow-up Recommend return to annual screening mammography.
== END 2024-01-27 23:59 | disposition home or self-care (01) ==
PROVIDERS: Nurse Practitioner Family; PCP Family Medicine; Visit Provider Family Medicine
DX: C91.10 Chronic lymphocytic leukemia of B-cell type not having achieved remission; Z53.9 Procedure and treatment not carried out, unspecified reason
CPT/HCPCS: 36415; 77063; 77067; 80053; 83615; 85025

== ENCOUNTER 2024-05-03 06:41 | Outpatient (CLI) | payer OTHER, BC, SELFPAY ==
--- NOTE | 2024-05-03 07:00 | USCV_ITS ---
Clara Ingram Age: 63 Gender: F : 1960 Exam Date: 05/03/2024 06:52 Ordering Phys: Demetrice Quijano MD ([email or web address]) Technologist: [place] [facility] [place]: BP: 128 / 80 HR: 81 Rhythm: Sinus Technical Quality: Adequate MEASUREMENTS (Male / Female) Normal Values 2D ECHO LV Diastolic Diameter PLAX 3.6 cm 4.2 - 5.9 / 3.9 - 5.3 cm IVS Diastolic Thickness 1.1 cm 0.6 - 1.0 / 0.6 - 0.9 cm IVS Systolic Thickness 1.3 cm LVPW Diastolic Thickness 1.0 cm 0.6 - 1.0 / 0.6 - 0.9 cm LVPW Systolic Thickness 1.3 cm LVOT Diameter 2.3 cm LV Ejection Fraction 2D Teich 70.1 % LV Ejection Fraction MOD 4C 54.2 % LV Ejection Fraction MOD 2C 73.2 % LV Ejection Fraction 2C AL 73.6 % LA Diameter 3.3 cm RA Systolic Volume 4C AL 43.1 ml RA Systolic Volume 4C MOD 42.5 ml LA Sys Volume AL 67.7 cm cubed LA Sys Volume Index AL 30.4 cm cubed/m squared Aorta at Sinotubular Diameter 3.0 cm IVC Diameter 2.5 cm M-MODE LA Ao Ratio MM 1.4 AV Cusp Separation MM 1.9 cm DOPPLER AV Peak Velocity 155.0 cm/s LVOT Peak Velocity 134.0 cm/s AV Area Cont Eq vti 4.1 cm squared AV Area Cont Eq pk 3.6 cm squared MV Peak Velocity 156.0 cm/s MV Area PHT 4.2 cm squared Mitral E to A Ratio 1.1 TV Peak Velocity 236.0 cm/s TR Peak Velocity 308.0 cm/s TR Peak Gradient 37.9 mmHg TV Peak E Velocity 308.0 cm/s Right Atrial Pressure 3.0 mmHg Pulmonary Artery Systolic Pressu 40.9 mmHg PV Peak Velocity 117.0 cm/s FINDINGS Left Ventricle Normal left ventricular size, systolic function and wall thickness, with no regional wall motion abnormalities. Left ventricular ejection fraction is estimated at 60 %. Grade II/IV diastolic dysfunction, moderately elevated filling pressures. Right Ventricle The right ventricle is normal in size and function. Right Atrium The right atrium is normal in size. Left Atrium The left atrium is normal in size. Mitral Valve Mild mitral valve regurgitation. Aortic Valve Thickened aortic valve. No aortic valve stenosis. No aortic valve regurgitation. Tricuspid Valve Structurally normal tricuspid valve without significant stenosis or regurgitation. Pulmonary artery systolic pressure is normal. Pulmonic Valve Trace pulmonary valve regurgitation. Pericardium Normal pericardium without effusion. Aorta Normal ascending aorta dimension. IVC The inferior vena cava appears normal. CONCLUSIONS Normal left ventricular size, systolic function and wall thickness, with no regional wall motion abnormalities. Left ventricular ejection fraction is estimated at 60 %. Grade II/IV diastolic dysfunction, moderately elevated filling pressures. Mild mitral valve regurgitation. There is no pericardial effusion. Right atrial pressure is around 5 mm of mercury. Demetrice Quijano MD (Electronically Signed) Final Date: 09 May 2024 20:26 S
== END 2024-05-03 06:42 | disposition home or self-care (01) ==
LOC: RAD 06:43
PROVIDERS: PCP Family Medicine; Visit Provider Internal Medicine Cardiovascular Disease
DX: I50.30 Unspecified diastolic (congestive) heart failure (principal); I35.2 Nonrheumatic aortic (valve) stenosis with insufficiency
CPT/HCPCS: 93306

== ENCOUNTER 2024-07-13 15:58 | Oncology outpatient (recurring) (ONCR) | payer OTHER, SELFPAY ==
[2024-07-13 16:39] LABS: Basophils # 0.1 10^3/uL (0.0-0.1); Basophils % 0.3 %; Hematocrit 43.9 % (36-47); Lymphocytes # 16.5 10^3/uL (0.8-4.8); Lymphocytes % 65.7 %; Mean Corpuscular HGB Conc 31.7 g/dL (30-55); Mean Corpuscular Hemoglobin 30.3 pg (27-33); Mean Corpuscular Volume 95.6 fl (85-98); Mean Platelet Volume 11.7 fL (7.4-10.4); Monocytes # 0.8 10^3/uL (0.2-0.9); Monocytes % 3.3 %; Neutrophils # 7.58 10^3/uL (1.8-7.7); Neutrophils % 30.3 %; Nucleated Red Blood Cells % 0 %; Platelet Count 227 10^3/cmm (157-399); Red Blood Count 4.59 10^6/uL (3.85-5.65); Red Cell Distribution Width 15.8 % (12.1-15.1); White Blood Count 25.03 10^3/uL (3.29-11.43)
[2024-07-13 17:05] LABS: Alanine Aminotransferase 23 U/L (0-33); Albumin Level 4.3 g/dL (3.5-5.2); Alkaline Phosphatase 94 U/L (35-105); Aspartate Amino Transferase 14 U/L (0-32); Blood Urea Nitrogen 18 mg/dL (8-23); Calcium 9.3 mg/dL (8.5-10.5); Carbon Dioxide 27 mmol/L (22-29); Chloride 101 mmol/L (98-107); Globulin 3.1 g/dL (1.3-4.6); Glucose 90 mg/dL (65-115); Osmolality Calculated 293 mOsm/kg (285-295); Sodium 141 mmol/L (136-145); Total Bilirubin 0.3 mg/dL (0.15-1.2); Total Protein 7.4 g/dL (6.6-8.7)
[2024-07-13 17:50] LABS: Slide Review Slide Review Perform
[2024-07-13 18:14] LABS: Anion Gap 16.8 (5-19); Potassium 3.8 mmol/L (3.5-5.1)
[2024-07-13 18:15] LABS: Lactate Dehydrogenase 195 U/L (135-214)
== END 2024-07-29 23:59 | disposition home or self-care (01) ==
LOC: ONCMED 15:59
PROVIDERS: Nurse Practitioner Family; PCP Family Medicine; Visit Provider Family Medicine
DX: C91.10 Chronic lymphocytic leukemia of B-cell type not having achieved remission (principal)
CPT/HCPCS: 80053; 83615; 85025

== ENCOUNTER 2024-12-15 15:18 | Oncology outpatient (recurring) (ONCR) | payer OTHER, SELFPAY ==
[2024-12-15 16:42] LABS: Basophils # 0.1 10^3/uL (0.0-0.1); Basophils % 0.3 %; Hematocrit 41.6 % (36-47); Lymphocytes # 16.6 10^3/uL (0.8-4.8); Mean Corpuscular HGB Conc 32.5 g/dL (30-55); Mean Corpuscular Hemoglobin 29.7 pg (27-33); Mean Corpuscular Volume 91.6 fl (85-98); Mean Platelet Volume 11.7 fL (7.4-10.4); Monocytes # 0.9 10^3/uL (0.2-0.9); Monocytes % 3.5 %; Neutrophils # 8.62 10^3/uL (1.8-7.7); Neutrophils % 32.8 %; Nucleated Red Blood Cells % 0 %; Platelet Count 227 10^3/cmm (157-399); Red Blood Count 4.54 10^6/uL (3.85-5.65); Red Cell Distribution Width 15.7 % (12.1-15.1); White Blood Count 26.29 10^3/uL (3.29-11.43)
[2024-12-15 16:49] LABS: Erythrocyte Sedimentation Rate 22 mm/hr (0-15)
[2024-12-15 17:04] LABS: Alanine Aminotransferase 18 U/L (0-33); Albumin Level 4.3 g/dL (3.5-5.2); Alkaline Phosphatase 103 U/L (35-105); Aspartate Amino Transferase 10 U/L (0-32); Blood Urea Nitrogen 18 mg/dL (8-23); C Reactive Protein 34.7 mg/L (0.0-4.9); Calcium 9.6 mg/dL (8.5-10.5); Carbon Dioxide 26 mmol/L (22-29); Chloride 101 mmol/L (98-107); Globulin 2.8 g/dL (1.3-4.6); Glomerular Filtration Rate 84.2 mL/min (90-130); Glucose 93 mg/dL (65-115); Lactate Dehydrogenase 194 U/L (135-214); Magnesium 1.8 mg/dL (1.7-2.3); Osmolality Calculated 292 mOsm/kg (285-295); Phosphorus 2.7 mg/dL (2.5-4.5); Sodium 140 mmol/L (136-145); Thyroid Stimulating Hormone 1.42 uIU/mL (0.27-4.20); Total Bilirubin 0.2 mg/dL (0.15-1.2); Total Protein 7.1 g/dL (6.6-8.7); Uric Acid 4.9 mg/dL (2.4-5.7)
[2024-12-18 15:45] LABS: Vit D 1,25 (Oh)2, Total 42 pg/mL (18-72); Vit D2 1,25 (Oh)2 <8 pg/mL; Vit D3 1,25 (Oh)2 42 pg/mL
[2024-12-23 11:45] LABS: CLL Prognostic Panel (BBPL) See Report
== END 2024-12-26 23:59 | disposition home or self-care (01) ==
PROVIDERS: Nurse Practitioner; PCP Family Medicine; Visit Provider Internal Medicine
DX: Z53.9 Procedure and treatment not carried out, unspecified reason (principal); C91.10 Chronic lymphocytic leukemia of B-cell type not having achieved remission
CPT/HCPCS: 80053; 81263; 82232; 82652; 83615; 83735; 84100; 84443; 84550; 85025; 85651; 86140; 88185; 88264; 88271; 88367; 88374

== ENCOUNTER 2025-01-19 12:30 | Oncology outpatient (recurring) (ONCR) | payer OTHER, SELFPAY ==
[2025-01-19 12:55] LABS: Hematocrit 45.0 % (36-47); Hemoglobin 14.60 g/dL (11.27-16.99); Mean Corpuscular HGB Conc 32.4 g/dL (30-55); Mean Corpuscular Hemoglobin 30.4 pg (27-33); Mean Corpuscular Volume 93.8 fl (85-98); Nucleated Red Blood Cells % 0.1 %; Platelet Count 254 10^3/cmm (157-399); Red Blood Count 4.80 10^6/uL (3.85-5.65)
[2025-01-19 13:16] LABS: Alanine Aminotransferase 22 U/L (0-33); Albumin Level 4.2 g/dL (3.5-5.2); Alkaline Phosphatase 85 U/L (35-105); Anion Gap 18.9 (5-19); Aspartate Amino Transferase 13 U/L (0-32); Blood Urea Nitrogen 24 mg/dL (8-23); Calcium 9.1 mg/dL (8.5-10.5); Carbon Dioxide 26 mmol/L (22-29); Chloride 98 mmol/L (98-107); Globulin 2.6 g/dL (1.3-4.6); Glucose 89 mg/dL (65-115); Osmolality Calculated 292 mOsm/kg (285-295); Potassium 3.9 mmol/L (3.5-5.1); Sodium 139 mmol/L (136-145); Total Protein 6.8 g/dL (6.6-8.7); Uric Acid 5.9 mg/dL (2.4-5.7)
[2025-01-19 13:18] LABS: Slide Review Slide Review Perform; White Blood Count 52.25 10^3/uL (3.29-11.43)
== END 2025-01-26 23:59 | disposition home or self-care (01) ==
PROVIDERS: PCP Family Medicine; Visit Provider Internal Medicine
DX: Z53.9 Procedure and treatment not carried out, unspecified reason (principal); C91.10 Chronic lymphocytic leukemia of B-cell type not having achieved remission; Z80.41 Family history of malignant neoplasm of ovary; M79.10 Myalgia, unspecified site
CPT/HCPCS: 36415; 80053; 83615; 84100; 84550; 85025; 85651

== ENCOUNTER 2025-02-02 07:36 | Oncology outpatient (recurring) (ONCR) | payer OTHER, SELFPAY ==
[2025-02-02 08:30] LABS: Hematocrit 43.0 % (36-47); Hemoglobin 13.70 g/dL (11.27-16.99); Mean Corpuscular HGB Conc 31.9 g/dL (30-55); Mean Corpuscular Hemoglobin 30.3 pg (27-33); Mean Corpuscular Volume 95.1 fl (85-98); Nucleated Red Blood Cells % 0.1 %; Platelet Count 175 10^3/cmm (157-399); Red Blood Count 4.52 10^6/uL (3.85-5.65)
[2025-02-02 08:40] LABS: Alanine Aminotransferase 21 U/L (0-33); Albumin Level 3.9 g/dL (3.5-5.2); Alkaline Phosphatase 76 U/L (35-105); Anion Gap 13.6 (5-19); Aspartate Amino Transferase 10 U/L (0-32); Blood Urea Nitrogen 14 mg/dL (8-23); Calcium 9.1 mg/dL (8.5-10.5); Carbon Dioxide 27 mmol/L (22-29); Chloride 103 mmol/L (98-107); Creatinine Clr Calc Pharmacy 99.5081; Globulin 2.5 g/dL (1.3-4.6); Glucose 126 mg/dL (65-115); Osmolality Calculated 292 mOsm/kg (285-295); Potassium 3.6 mmol/L (3.5-5.1); Sodium 140 mmol/L (136-145); Total Protein 6.4 g/dL (6.6-8.7); Uric Acid 4.3 mg/dL (2.4-5.7)
[2025-02-02 08:46] LABS: White Blood Count 30.99 10^3/uL (3.29-11.43)
[2025-02-02 08:47] LABS: Slide Review Slide Review Perform
[2025-02-03 06:25] LABS: PROTEIN, TOTAL 6.1 g/dL (6.1-8.1)
[2025-02-04 11:29] LABS: ALPHA 1 GLOBULIN 0.3 g/dL (0.2-0.3); ALPHA 2 GLOBULIN 0.8 g/dL (0.5-0.9); BETA 1 GLOBULIN 0.4 g/dL (0.4-0.6); BETA 2 GLOBULIN 0.3 g/dL (0.2-0.5)
== END 2025-02-26 23:59 | disposition home or self-care (01) ==
PROVIDERS: Nurse Practitioner; PCP Family Medicine; Visit Provider Internal Medicine
DX: C91.10 Chronic lymphocytic leukemia of B-cell type not having achieved remission (principal)
CPT/HCPCS: 36415; 80053; 82784; 83010; 83615; 84155; 84165; 84550; 85025; 86334

== ENCOUNTER 2025-05-04 07:33 | Oncology outpatient (recurring) (ONCR) | payer OTHER, SELFPAY ==
[2025-05-04 08:08] LABS: Hematocrit 42.1 % (36-47); Hemoglobin 13.40 g/dL (11.27-16.99); Mean Corpuscular HGB Conc 31.8 g/dL (30-55); Mean Corpuscular Hemoglobin 29.7 pg (27-33); Mean Corpuscular Volume 93.3 fl (85-98); Nucleated Red Blood Cells % 0.1 %; Platelet Count 228 10^3/cmm (157-399); Red Blood Count 4.51 10^6/uL (3.85-5.65); White Blood Count 24.98 10^3/uL (3.29-11.43)
[2025-05-04 08:29] LABS: Alanine Aminotransferase 18 U/L (0-33); Albumin Level 4.2 g/dL (3.5-5.2); Alkaline Phosphatase 89 U/L (35-105); Anion Gap 18.0 (5-19); Aspartate Amino Transferase 12 U/L (0-32); Blood Urea Nitrogen 18 mg/dL (8-23); Calcium 9.2 mg/dL (8.5-10.5); Carbon Dioxide 25 mmol/L (22-29); Chloride 102 mmol/L (98-107); Globulin 2.7 g/dL (1.3-4.6); Glucose 116 mg/dL (65-115); Osmolality Calculated 295 mOsm/kg (285-295); Potassium 4.0 mmol/L (3.5-5.1); Sodium 141 mmol/L (136-145); Total Protein 6.9 g/dL (6.6-8.7); Uric Acid 4.5 mg/dL (2.4-5.7)
[2025-05-04 08:30] LABS: Slide Review Slide Review Perform
[2025-05-06 08:11] LABS: PROTEIN, TOTAL 6.4 g/dL (6.1-8.1)
[2025-05-08 09:31] LABS: ALPHA 1 GLOBULIN 0.4 g/dL (0.2-0.3); ALPHA 2 GLOBULIN 0.9 g/dL (0.5-0.9); BETA 1 GLOBULIN 0.5 g/dL (0.4-0.6); BETA 2 GLOBULIN 0.4 g/dL (0.2-0.5)
== END 2025-05-28 23:59 | disposition home or self-care (01) ==
PROVIDERS: PCP Family Medicine; Visit Provider Internal Medicine
DX: C91.10 Chronic lymphocytic leukemia of B-cell type not having achieved remission (principal)
CPT/HCPCS: 36415; 80053; 82784; 83010; 83615; 84155; 84165; 84550; 85025; 85651; 86334